=== PATIENT | female | born 2005 | race Caucasian/White ===

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

== ENCOUNTER 2023-09-27 14:20 | Emergency (ER) | payer BC, SELFPAY ==
[2023-09-27 14:38] VITALS: BP 129/72; PULSE 110; RESP 16; TEMP 37.3; O2SAT 99
--- NOTE | 2023-09-27 14:52 | ED.SKABFB ---
HPI - Skin/Abscess/Foreign Bdy General Chief complaint: Skin/Abscess/Foreign Body Stated complaint: Rash Time Seen by Provider: 09/27/23 14:53 Source: patient, RN notes reviewed and old records reviewed Mode of arrival: ambulatory Limitations: no limitations History of Present Illness HPI narrative: patient presents with complaints of rash to neck. She reports that the rash began on the right side of her neck a couple of weeks ago, has been spreading. She reports that 1 day prior to noticing the rash she did feel as though something might have stung or bit her while she was sitting outside. She did not see anything sting or bite her. She states she did not notice any evidence of a sting or bite, just presumed that the rash was a result of being stung or bitten. She does also share that her stepmother has ringworm. The rash has been spreading MD complaint: rash Related Data Home Medications Medication Instructions Recorded Confirmed cetirizine 10 mg tablet (Zyrtec) 10 mg PO DAILY 09/27/23 09/27/23 isotretinoin 30 mg capsule 30 mg PO BID 09/27/23 09/27/23 (Accutane) levonorgestrel 0.1 mg-ethinyl 1 tablet PO DAILY 09/27/23 09/27/23 estradiol 0.02 mg (21)/iron (7) tablet Allergies Allergy/AdvReac Type Severity Reaction Status Date / Time No Known Allergies Allergy Verified 09/27/23 14:37 Review of Systems Review of Systems: All systems reviewed & are unremarkable except as noted in HPI and below Constitutional: Constitutional: Reports no additional constitutional complaints ENT: Reports system reviewed and no additional complaints, except as documented Cardiovascular: Cardiovascular: Reports no additional cardiovascular complaints Respiratory: Respiratory: Reports no additional respiratory complaints Gastrointestinal: Gastrointestinal: Reports no additional gastrointestinal complaints Integumentary/Breasts: Skin/Breast: Reports rash PMFSH Past Medical History Medical History (Updated 09/27/23 @ 15:00 by Roshni Bishop APRN) History of bipolar disorder Social History Social History Substance use type: does not use Comments At the time of my signature, I reviewed and agree with the nursing past medical, surgical, social, and family history. There is no relevant family history pertinent to the patient complaint. Exam Const: General: cooperative, no acute distress, alert and awake Orientation/consciousness: oriented to person, oriented to place and oriented to time HENMT: Head: normal to inspection Neck: Neck images: 1. flat red scaly rash with central clearing 2. flat red scaly rash with central clearing 3. flat red scaly rash with central clearing Resp: Effort & Inspection: normal respiratory effort and able to speak in complete sentences Auscultation: clear to auscultation bilaterally, no crackles, no rales, no rhonchi and no wheezes Cardio: Palpation: normal PMI Rate: regular rate Rhythm: regular rhythm Heart sounds: S1 normal heart sound present and S2 normal heart sound present Skin: Rashes: rashes noted ( to neck) Neuro: General: oriented to person, oriented to place and oriented to time Cranial nerves: Yes CN's II-XII intact bilaterally Psych: Appearance: grossly normal Thought process: Normal thought process present Insight: Good insight present (Psych) Judgement: Good judgement present (Psych) Course Course Level of Care: Express Care Visit Vital Signs Vital signs: Vital Signs Temperature 99.2 F 09/27/23 14:38 Pulse Rate 110 H 09/27/23 14:38 Respiratory Rate 16 09/27/23 14:38 Blood Pressure 129/72 09/27/23 14:38 Pulse Oximetry 99 09/27/23 14:38 Temperature 99.2 F 09/27/23 14:38 Pulse Rate 110 H 09/27/23 14:38 Respiratory Rate 16 09/27/23 14:38 Blood Pressure 129/72 09/27/23 14:38 Pulse Oximetry 99 09/27/23 14:38 Reviewed MDM - Skin/Abscess/Foreig
== END 2023-09-27 15:04 | disposition home or self-care (01) ==
PROVIDERS: Emergency Provider Nurse Practitioner Family
DX: B35.4 Tinea corporis (principal)
CPT/HCPCS: 99213; G0463

== ENCOUNTER 2023-12-02 15:52 | Emergency (ER) | payer BC, SELFPAY ==
[2023-12-02 16:00] VITALS: BP 113/80; PULSE 66; RESP 18; TEMP 37.1; O2SAT 100
--- NOTE | 2023-12-02 16:19 | ED.URI ---
HPI - URI/Sore Throat General Chief Complaint: Upper Respiratory Infection Stated Complaint: Sore Throat/Cough Time Seen by Provider: 12/02/23 16:05 Source: patient Mode of arrival: ambulatory Limitations: no limitations History of Present Illness HPI Narrative: Kendall is a 18-year-old female patient presenting to the clinic today with complaints of sore throat, postnasal drip, losing her voice, and nasal congestion for the past 3 days. He denies any known fever or chills. Denies any chest pain or shortness of breath. MD elicited complaint: sore throat and nasal congestion Related Data Home Medications Medication Instructions Recorded Confirmed cetirizine 10 mg tablet (Zyrtec) 10 mg PO DAILY 09/27/23 12/02/23 isotretinoin 30 mg capsule 30 mg PO BID 09/27/23 12/02/23 (Accutane) drospirenone 3 mg-ethinyl 1 tablet PO DAILY 12/02/23 12/02/23 estradiol 0.02 mg tablet Allergies Allergy/AdvReac Type Severity Reaction Status Date / Time No Known Allergies Allergy Verified 12/02/23 15:58 Review of Systems Review of Systems: Pertinent positives per HPI. Patient denies any fever, chills, rash, headache, visual changes, dizziness, shortness of breath, chest pain, palpitations, nausea, vomiting, diarrhea, constipation, abdominal pain, or any urinary issues. PMFSH Past Medical History Medical History History of bipolar disorder Social History Social History Substance use type: does not use Comments At the time of my signature, I reviewed and agree with the nursing past medical, surgical, social, and family history. There is no relevant family history pertinent to the patient complaint. Exam Narrative: General: Well-developed, well nourished, in no apparent distress Head: Normocephalic, atraumatic Eyes: Pupils equally round and reactive to light bilaterally, EOM intact, sclera and conjunctive clear, no discharge, lids normal Ears: TMs intact and clear, ear canals clear, no drainage, grossly hearing normal. Nose: Nares patent, clear nasal discharge, no inflammation, no sinus tenderness. Mouth: Oral pharynx without lesions or masses, good dentition, MMM. Postnasal drip Neck: Supple, trachea midline, no enlargement of anterior or posterior cervical nodes, no thyroid masses or goiter palpable. Cardio: Regular rate and rhythm, s1 and s2 normal, no murmur appreciated. Resp: Clear to auscultation bilaterally, no rhonchi, rales, wheezing or rubs Course Course Emergency Course: Portions of this record may have been created with voice recognition software. Level of Care: Express Care Visit Vital Signs Vital signs: Vital Signs Temperature 37.1 C 12/02/23 16:00 Pulse Rate 66 12/02/23 16:00 Respiratory Rate 18 12/02/23 16:00 Blood Pressure 113/80 12/02/23 16:00 Pulse Oximetry 100 12/02/23 16:00 Oxygen Delivery Room Air 12/02/23 16:00 Temperature 37.1 C 12/02/23 16:00 Pulse Rate 66 12/02/23 16:00 Respiratory Rate 18 12/02/23 16:00 Blood Pressure 113/80 12/02/23 16:00 Pulse Oximetry 100 12/02/23 16:00 Oxygen Delivery Room Air 12/02/23 16:00 Vital signs reviewed MDM - URI/Sore Throat MDM Narrative Medical decision making narrative: At the time of visit patient is resting comfortably on the exam table. Patient appears to be nontoxic. Labs: COVID testing was negative in the clinic today. Strep test was negative in the clinic today. We will send strep for culture. Plan: I suspect patient has URI/postnasal drip/laryngitis. Prescription for prednisone was sent to the pharmacy. Supportive measures were discussed with the patient and they voiced understanding discharge instructions and agrees to treatment plan. Return precautions reviewed Differential Diagnosis Differential diagnosis: Likely upper respiratory infection, otitis media,
[2023-12-02 16:29] LABS: EDCOVIDSCREEN Negative (Negative); EDSTREPNEGPOS1 Negative (Negative)
== END 2023-12-02 16:46 | disposition home or self-care (01) ==
PROVIDERS: Emergency Provider Nurse Practitioner Family
DX: J06.9 Acute upper respiratory infection, unspecified (principal); J04.0 Acute laryngitis; R09.82 Postnasal drip; F31.9 Bipolar disorder, unspecified; Z20.822 Contact with and (suspected) exposure to COVID-19
CPT/HCPCS: 87081; 87426; 87880; 99213; G0463

== ENCOUNTER 2024-05-08 18:00 | Emergency (ER) | payer OTHER, SELFPAY ==
[2024-05-08 18:13] VITALS: BP 111/86; PULSE 110; RESP 16; TEMP 36.9; O2SAT 100
--- NOTE | 2024-05-08 18:16 | ED.ABDPAIN ---
HPI - Abdominal Pain General Chief Complaint: Abdominal Pain Stated Complaint: Stomach Problems, Nausea Source: patient and RN notes reviewed Mode of arrival: ambulatory Limitations: no limitations History of Present Illness HPI narrative: 19-year-old female presented for complaint of nausea, vomiting, and diarrhea intermittently for about 5 days. States the symptoms are improving. She reports occasional burning with urination and some clear white vaginal discharge x3 days. States she used a new brand of tampons. She denies vaginal itching or lesions. She denies concern for STDs or . Denies hematuria, nausea, vomiting, abdominal pain, flank pain, constipation, fevers or chills. Related Data Home Medications ?Medication ?Instructions ?Recorded ?Confirmed ?Last Taken ?Type drospirenone 3 mg-ethinyl 1 tablet PO DAILY 12/02/23 05/08/24 Unknown History estradiol 0.02 mg tablet Allergies Allergy/AdvReac Type Severity Reaction Status Date / Time No Known Allergies Allergy Verified 05/08/24 18:11 Review of Systems Review of Systems: CONSTITUTIONAL: Denies body aches, fever, chills ENT: Denies rhinorrhea, congestion CARDIOVASCULAR: Denies chest pain, palpitations, or edema. RESPIRATORY: Denies cough or dyspnea. GASTROINTESTINAL: Endorses nausea, vomiting, diarrhea. Denies abdominal pain, hematochezia, melena, hematemesis GENITOURINARY: Denies dysuria, frequency, urgency, hematuria, or CVA tenderness. SKIN: Denies rash MUSCULOSKELETAL: Denies back pain, joint pain, or myalgia. NEUROLOGIC: Denies headache, numbness, tingling, or weakness. All systems reviewed & are unremarkable except as noted in HPI and below PMFSH Past Medical History Medical History History of bipolar disorder Social History Social History Substance use type: does not use Comments At time of signature, I have reviewed and agree with nursing past medical, surgical, social and family history unless otherwise noted. Please see nursing chart for further information. There is no relevant family history pertinent to the presenting complaint Exam Narrative: GENERAL: Well-appearing, and in no acute distress. EYES: EOMI. Conjunctivae normal. ENT: Mucous membranes pink and moist. CHEST: No respiratory distress. Clear to auscultation. HEART: Regular rate and rhythm. No murmur appreciated. Normal peripheral pulses. ABDOMEN: abd soft, nondistended, normal active bowel sounds. nontender abdomen: No guarding, rebound tenderness, asymmetry EXTREMITIES: Normal range of motion. No edema. SKIN: Warm, dry, no rash. Capillary refill normal. Normal skin turgor. NEURO: No focal deficits. Alert and oriented x3. PSYCH: Normal affect. Course Course Emergency Course: Patient is aware of diagnosis, understands and agrees to treatment plan. Anticipatory guidance given. Patient agrees to follow-up as directed and is aware of reasons to seek care at the emergency department. Portions of this record may have been created with voice recognition software Level of Care: Express Care Visit Vital Signs Vital signs: Vital Signs Temperature 98.4 F 05/08/24 18:13 Pulse Rate 110 H 05/08/24 18:13 Respiratory Rate 16 05/08/24 18:13 Blood Pressure 111/86 05/08/24 18:13 Pulse Oximetry 100 05/08/24 18:13 Temperature 98.4 F 05/08/24 18:13 Pulse Rate 110 H 05/08/24 18:13 Respiratory Rate 16 05/08/24 18:13 Blood Pressure 111/86 05/08/24 18:13 Pulse Oximetry 100 05/08/24 18:13 MDM - Abdominal Pain MDM Narrative Medical decision making narrative: Discussed physical exam findings and urine dip. Patient reports improvement in nausea vomiting, and diarrhea symptoms this week. She refuses any STD testing. She is agreeable to treatment for bacterial vaginosis at this time. Advised supportive measures and signs/symptoms to go to the ER. Pt is appropriate for outpt treatment and f/u. Differential Diagnosis Differential diagnosis: Likely abdominal pain, constipation, diverticulitis and gastroenteritis Discharge Plan Discharge Clinical Impression: Viral infection, Vaginitis Patient Disposition: Home, Self-Care Condition: Stable Instructions: Antibiotic Form, Gastroenteritis (ED) Additional Instructions: Stay hydrated. Take small sips of fluid containing electrolytes frequently. Clear liquids (broth, jello, tea, sprite, pedialyte) [place] foods (bananas, rice, applesauce, toast, crackers) Avoid fatty, greasy, fried or spicy foods. Limit dairy until symptoms are improved. [id number] Imodium according to package directions Recommend probiotic such as align or lactobacillus to help with symptoms. You should go to the hospital if you experience persistent nausea and vomiting that does not resolve and does not allow you to tolerate any food or fluids, fevers, increasing abdominal pain, persistent diarrhea, dizziness, fainting, or for any other concerns. Your urine will be sent of for a culture to determine if bacteria is causing your symptoms. If the culture shows a UTI, you will be notified and an antibiotic will be called in for you. you will need to follow up with your PCP for further evaluation and treatment if symptoms persist, call today to schedule follow-up appointment. Go to the ER for any worsening symptoms or concerns. Follow up with primary care provider in 3 days. Patient Language: Estonian Prescriptions: New metronidazole 500 mg tablet 500 mg PO Q12H 7 Days Qty: 14 0RF ondansetron 4 mg tablet,disintegrating 4 mg PO Q8H PRN (Reason: nausea and vomiting) Qty: 10 0RF No Action drospirenone-ethinyl estradiol 3-0.02 mg tablet 1 tablet PO DAILY Follow-up/Referrals: PHYSICIAN NOT ON STAFF,NONSTAFF [Primary Care Provider] - Time of Disposition: 18:39
[2024-05-08 18:47] LABS: EDUAAPPEAR Clear; EDUABILI Negative (Negative); EDUABLOOD Negative (Negative); EDUACOLOR1 Yellow; EDUAGLUCOSE Negative (Negative); EDUAKETONE Trace (Negative); EDUALEUKO Negative (Negative); EDUANITRATE Negative (Negative); EDUAPROTEIN Negative (Negative); EDUAUROBILI 0.2
== END 2024-05-08 18:42 | disposition home or self-care (01) ==
PROVIDERS: Emergency Provider Nurse Practitioner Family
DX: B34.9 Viral infection, unspecified (principal); N76.0 Acute vaginitis
CPT/HCPCS: 81003; 87086; 99213; G0463